=== PATIENT | male | born 1960 | race Caucasian/White ===

== ENCOUNTER 2022-08-04 04:43 | Emergency (ER) | payer MEDICAID, OTHER ==
[~2022-08-04] VITALS: Ht 165.1 cm; Wt 82.1 kg
[~2022-08-04 04:43] MED LIST: ASPI-1497 PO; ATEN-42 PO; CLOP-31 PO; GLIP5TAB12 PO; LISI10TA26 PO; METF-416 PO; PANT40TA51 PO; SIMV-46 PO; SUCR1TAB PO
[2022-08-04 05:27] VITALS: BP 155/61
[2022-08-04] MEDS ORDERED: CARB-274 EACH EAR (11:08)
== END 2022-08-04 11:47 | disposition home or self-care (01) ==
LOC: ER 04:43
DX: H61.21 Impacted cerumen, right ear (principal); H93.8X2 Other specified disorders of left ear; I10 Essential (primary) hypertension; E11.9 Type 2 diabetes mellitus without complications
CPT/HCPCS: 99282